=== PATIENT | female | born 1985 | race Caucasian/White ===

== ENCOUNTER 2018-04-22 18:50 | Emergency (ER) | payer BC ==
--- NOTE | 2018-04-22 19:32 | EDM.PDOC ---
ED HPI GENERAL MEDICAL PROBLEM - General Chief Complaint: Lower Extremity Injury/Pain Stated Complaint: RIGHT KNEE HAS A RED SPOT Time Seen by Provider: 04/22/18 19:16 Source of Information: Reports: Patient History Limitations: Reports: No Limitations - History of Present Illness INITIAL COMMENTS - FREE TEXT/NARRATIVE: The patient states that she has had painless right knee swelling for the past 6 months, that gets worse with prolonged standing. She states that she wears a knee brace. This morning she noticed a very slight patch of painless erythema to the medial aspect of her right knee. No known injury, although it is in the area where she wears a knee brace. No prior similar symptoms. The patient states that she and her family recently moved from [place], and that she does not have a PCP. - Related Data Allergies Allergy/AdvReac Type Severity Reaction Status Date / Time No Known Allergies Allergy Verified 04/22/18 19:12 Home Meds: Home Meds . [No Known Home Meds] 04/22/18 [History] Past Medical History - Past Health History Medical/Surgical History: Denies Medical/Surgical History Social & Family History - Tobacco Use Smoking Status *Q: Never Smoker - Caffeine Use Caffeine Use: Reports: Coffee, Soda - Alcohol Use Alcohol Use History: No - Recreational Drug Use Recreational Drug Use: No - Living Situation & Occupation Living situation: Reports: , with Spouse, with Family (6 kids) Occupation: Unemployed Review of Systems - Review of Systems Review Of Systems: ROS reveals no pertinent complaints other than HPI. ED EXAM, GENERAL - Physical Exam Exam: See Below Exam Limited By: No Limitations General Appearance: Alert, WD/WN, No Apparent Distress Extremities: Other (There is the very slightest area of erythema, barely visible , measuring no more than 1 cm by 0.5 cm, to the medial aspect of the patient's right knee. It is not raised on palpation, and easily blanches. Neurovascular status of the right lower extremity is intact.) Course - Vital Signs Last Recorded V/S: Last Vital Signs Temp 37.3 C 04/22/18 19:15 Pulse 99 04/22/18 19:15 Resp 20 04/22/18 19:15 BP 109/78 04/22/18 19:15 Pulse Ox 100 04/22/18 19:15 - Re-Assessments/Exams Free Text/Narrative Re-Assessment/Exam: 04/22/18 19:28 The patient has a very tiny red willie to the medial aspect of her right knee. There is no associated inflammation, and the marked is not raised. The patient states that she wears a knee brace, and this is likely due to perspiring under the neoprene, for a period of time. There is no suggestion of an infection. I'm recommending that the patient simply leave it alone. I will refer the patient to Dr. Rosana Allen is a PCP. The patient's daughter was given a bicycle helmet. Departure - Departure Time of Disposition: 19:28 Disposition: Home, Self-Care 01 Condition: Good Clinical Impression: Erythema - Discharge Information *PRESCRIPTION DRUG MONITORING PROGRAM REVIEWED*: No *COPY OF PRESCRIPTION DRUG MONITORING REPORT IN PATIENT SALVADOR: No Referrals: PCP,None [Primary Care Provider] - Erica Allen MD [Physician] - Forms: ED Department Discharge Additional Instructions: You were seen in the emergency room for a small red willie on the middle side of your right knee. On examination, this willie was likely made from your knee brace. There is no suggestion of an infection or blood clot. Follow-up with Dr. Erica Allen as a primary care physician, as needed. If any other problems, please do not hesitate to return to the ER.
== END 2018-04-22 19:40 | disposition home or self-care (01) ==
LOC: JD.ED 18:50
DX: L53.9 Erythematous condition, unspecified (principal)
CPT/HCPCS: 99282; 99283

== ENCOUNTER 2019-10-10 10:59 | Emergency (ER) | payer BC ==
--- NOTE | 2019-10-10 11:41 | EDM.PDOC ---
ED HPI GENERAL MEDICAL PROBLEM - General Chief Complaint: Fever Stated Complaint: FEVER Time Seen by Provider: 10/10/19 11:35 Source of Information: Reports: Patient History Limitations: Reports: No Limitations - History of Present Illness INITIAL COMMENTS - FREE TEXT/NARRATIVE: 34-year-old female presents the ED complaining of fever and chills since mid Monday p.m. This would be October 07. She never developed a severe headache. She does have a paroxysmal nonproductive cough. Denies any genitourinary complaints no diarrhea or vomiting occurred. Any sputum. Throat or ears. 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 No members of her family are currently ill. She reports one of her daughters had some diarrhea and vomiting for a day and a half last week. She did not have a flu shot. Appetite remains fair. Onset: Sudden Onset Date: 10/07/19 (Onset of fever and chills Monday afternoon.) Duration: Day(s):, Constant Location: Reports: Generalized (Treatment intermittent fever and chills improves with Tylenol.) Quality: Reports: Other (Again body aches.) Severity: Moderate Improves with: Reports: Medication Worsens with: Reports: None (Tylenol brings down the fever.) Context: Reports: Other (Spontaneous occurrence.). Denies: Activity, Exercise, Lifting, Sick Contact, Trauma Associated Symptoms: Reports: Cough, Diaphoresis, Fever/Chills. 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 - Related Data Allergies Allergy/AdvReac Type Severity Reaction Status Date / Time No Known Allergies Allergy Verified 10/10/19 14:25 Home Meds: Home Meds Azithromycin [Zithromax] 250 mg PO DAILY #6 tab 10/10/19 [Rx] busPIRone [Buspar] 5 mg PO ASDIRECTED 10/10/19 [History] Past Medical History - Past Health History Medical/Surgical History: Denies Medical/Surgical History : 2 Para: 2 Psychiatric History: Reports: Anxiety Social & Family History - Tobacco Use Smoking Status *Q: Never Smoker - Caffeine Use Caffeine Use: Reports: Coffee - Recreational Drug Use Recreational Drug Use: No - Living Situation & Occupation Living situation: Reports: , with Spouse, with Family (6 kids) 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 Denies: Decreased Appetite, Weight Loss HEENT: Reports: No Symptoms Respiratory: Reports: Cough. Denies: Shortness of Breath, Wheezing, Pleuritic Chest Pain Cardiovascular: Reports: No Symptoms. Denies: Chest Pain, Blood Pressure Problem, Claudication, Dyspnea on Exertion, Edema, Lightheadedness, Orthopnea Endocrine: Reports: No Symptoms GI/Abdominal: Reports: No Symptoms : Reports: Frequency. Denies: Dysuria Musculoskeletal: Reports: No Symptoms Skin: Reports: No Symptoms Neurological: Reports: No Symptoms Psychiatric: Reports: No Symptoms Hematologic/Lymphatic: Reports: No Symptoms Immunologic: Reports: No Symptoms ED EXAM, GENERAL - Physical Exam Exam: See Below Exam Limited By: No Limitations General Appearance: Alert, WD/WN, No Apparent Distress, Other (Temperature is 37.5 although she did not feel that warm to palpation. Heart rate at the bedside was 117. BP 112/84 sats 100% on room air. Respiratory rate not recorded clinically she was about 18/m.) Eye Exam: Bilateral Eye: Normal Inspection Ears: Other (Unable to visualize the left tympanic membrane is is occluded with cerumen.) Throat/Mouth: Normal Inspection, Normal Lips, Normal Oropharynx Head: Atraumatic, Normocephalic Neck: Normal Inspection, Supple, Non-Tender, Full Range of Motion. No: Carotid Bruit, Lymphadenopathy (L), Lymphadenopathy (R), Thyromegaly Respiratory/Chest: No Respiratory Distress, Lungs Clear, Normal Breath Sounds, No Accessory Muscle Use Cardiovascular: Normal Peripheral Pulses, Regular Rate, Rhythm, No Edema, No Gallop, No Murmur, No Rub Peripheral Pulses: 4+: Posterior Tibial (L), Posterior Tibial (R), Dorsalis Pedis (L), Dorsalis Pedis (R) GI/Abdominal: Normal Bowel Sounds, Soft, Non-Tender, No Organomegaly, No Abnormal Bruit, No Mass, Pelvis Stable Back Exam: Normal Inspection, Full Range of Motion. No: CVA Tenderness (L), CVA Tenderness (R) Extremities: Normal Inspection, Normal Range of Motion, Non-Tender, No Pedal Edema Neurological: Alert, Oriented, CN II-XII Intact, Normal Cognition Psychiatric: Normal Affect, Normal Mood Skin Exam: Warm, Dry, Intact, Normal Color, No Rash Course - Vital Signs Last Recorded V/S: Last Vital Signs Temp 37.5 C 10/10/19 11:21 Pulse 117 H 10/10/19 11:21 Resp BP 112/84 10/10/19 11:21 Pulse Ox 100 10/10/19 11:21 - Orders/Labs/Meds Labs: Laboratory Tests 10/10/19 10/10/19 10/10/19 Range/Units 11:51 12:01 12:01 WBC 10.38 H (3.98-10.04) K/mm3 RBC 4.15 (3.98-5.22) M/mm3 Hgb 12.6 (11.2-15.7) gm/dl Hct 37.6 (34.1-44.9) % MCV 90.6 (79.4-94.8) fl MCH 30.4 (25.6-32.2) pg MCHC 33.5 (32.2-35.5) g/dl RDW Std Deviation 38.0 (36.4-46.3) fL Plt Count 301 (182-369) K/mm3 MPV 9.9 (9.4-12.3) fl Neut % (Auto) 75.3 H (34.0-71.1) % Lymph % (Auto) 15.3 L (19.3-51.7) % [place] % (Auto) 7.7 (4.7-12.5) % Eos % (Auto) 1.2 (0.7-5.8) Baso % (Auto) 0.2 (0.1-1.2) % Neut # (Auto) 7.82 H (1.56-6.13) K/mm3 Lymph # (Auto) 1.59 (1.18-3.74) K/mm3 [place] # (Auto) 0.80 H (0.24-0.36) K/mm3 Eos # (Auto) 0.12 (0.04-0.36) K/mm3 Baso # (Auto) 0.02 (0.01-0.08) K/mm3 Sodium 136 (136-145) mEq/L Potassium 3.6 (3.5-5.1) mEq/L Chloride 99 (98-107) mEq/L Carbon Dioxide 25 (21-32) mEq/L Anion Gap 15.6 H (5-15) BUN 9 (7-18) mg/dL Creatinine 0.6 (0.55-1.02) mg/dL Est Cr Clr Drug Dosing 106.46 mL/min Estimated GFR (MDRD) > 60 (>60) mL/min BUN/Creatinine Ratio 15.0 (14-18) Glucose 104 (74-106) mg/dL Calcium 9.1 (8.5-10.1) mg/dL Total Bilirubin 0.6 (0.2-1.0) mg/dL AST 42 H (15-37) U/L ALT 101 H (14-59) U/L Alkaline Phosphatase 96 (46-116) U/L C-Reactive Protein 9.0 H* (<1.0) mg/dL Total Protein 7.8 (6.4-8.2) g/dl Albumin 3.6 (3.4-5.0) g/dl Globulin 4.2 gm/dL Albumin/Globulin Ratio 0.9 L (1-2) Urine Color Yellow (Yellow) Urine Appearance Clear (Clear) Urine pH 7.5 (5.0-8.0) Ur Specific [place] 1.020 (1.005-1.030) Urine Protein Negative (Negative) Urine Glucose (UA) Negative (Negative) Urine Ketones Negative (Negative) Urine Occult Blood Negative (Negative) Urine Nitrite Negative (Negative) Urine Bilirubin Negative (Negative) Urine Urobilinogen 0.2 (0.2-1.0) Ur Leukocyte Esterase Negative (Negative) Urine RBC 0-5 (0-5) /hpf Urine WBC 0-5 (0-5) /hpf Ur Squamous Epith Cells 0-5 (0-5) /hpf Urine Bacteria Few (FEW) /hpf Urine Mucus Few (FEW) /hpf Meds: Medications Discontinued Medications Generic Name Dose Route Start Last Admin Trade Name Freq PRN Reason Stop Dose Admin Azithromycin 500 mg 10/10/19 13:42 10/10/19 14:03 Zithromax PO 10/10/19 13:43 500 mg ONETIME ONE Administration - Radiology Interpretation Free Text/Narrative:: 34-year-old female presents to the ED with chief complaint of fever and chills that have been ongoing since October 07 p.m. She did not develop a bad headache. Has a minimal nonproductive cough more like a tickle in her throat. No urinary tract symptoms she never developed any nausea vomiting or diarrhea. She has broken out in a sweat in the nighttime due to the severity of the fever. 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 Examination yields no obvious signs of an infection. Plan influenza screen. Routine labs and CRP and a urinalysis. I will hold off on a chest x-ray for now as it is clear to auscultation percussion. If the influenza comes back negative then she will have a chest x-ray performed. - Re-Assessments/Exams Free Text/Narrative Re-Assessment/Exam: 10/10/19 13:21 White count is 10.38. 75% neutrophils. Hemoglobin is 12.6 with hematocrit 37.6. Platelet count 301,000. Sodium 136 with a potassium of 3.6. Chloride is 99 with a bicarbonate 25. Anion gap is 15.6. BUN is 9 with a creatinine of 0.6. GFR is greater than 60. Glucose is 104. Calcium is 9.1 total bilirubin is 0.6 AST is 42 with an ALT of 101. Prostate is 96. C-reactive protein is elevated at 9.0. Total protein is 7.8 with an albumin fraction of 3.6. Urinalysis is completely normal. Influenza screen is also negative. Patient will therefore be 4 chest x-ray 10/10/19 13:45 view chest x-ray reveals a right upper lobar infiltrate compatible with pneumonia. As appears to be the cause cause of her fever and chills. She be placed on Zithromax. Initial 500 mg will be given in the ED. She will then be placed on 250 mg of Zithromax daily for another 6 days to clear up infection. She will continue either Tylenol and/or Motrin/Advil as needed for fever and chills. She should this expect improvement over the next 48-72 hours. Departure - Departure Time of Disposition: 13:46 Disposition: Home, Self-Care 01 Condition: Fair Clinical Impression: Pneumonia Qualifiers: Pneumonia type: due to unspecified organism Laterality: right Lung location: upper lobe of lung Qualified Code(s): J18.9 - Pneumonia, unspecified organism - Discharge Information *PRESCRIPTION DRUG MONITORING PROGRAM REVIEWED*: Not Applicable *COPY OF PRESCRIPTION DRUG MONITORING REPORT IN PATIENT SALVADOR: Not Applicable Prescriptions: Azithromycin [Zithromax] 250 mg PO DAILY #6 tab Instructions: Community-Acquired Pneumonia, Adult Referrals: PCP,None [Primary Care Provider] - Forms: ED Department Discharge Additional Instructions: Evaluation the emergency room today in regards to intermittent fever and chills for the last 4 days. Mild nonproductive cough i.e. more like a tickle in the throat. Examination did not yield any obvious sources of infection. Lab tests revealed a mildly elevated white blood cell count and a CRP which is a measuring stick for bacterial infection was elevated at 9.0 with normal being 1. Urinalysis was normal. Therefore two-view chest x-ray was carried out to look for pneumonia and in fact there is a patch of pneumonia developing in the right upper lobe of the lung. Treatment is therefore Zithromax initial dose 500 mg given in the ED. He will then need one tablet 250 mg daily at dinnertime every day for the next 6 days to clear up pneumonia completely. And if not completely back to normal in 7 days time Sepsis Event Note - Evaluation Sepsis Screening Result: No Definite Risk - Focused Exam Vital Signs: Vital Signs Temp Pulse BP Pulse Ox 10/10/19 11:21 37.5 C 117 H 112/84 100 Date Exam was Performed: 10/10/19 Time Exam was Performed: 19:05
[2019-10-10] MEDS ORDERED: Azithromycin 250 MG Tab PO ONE (13:42)
--- NOTE | 2019-10-10 14:06 | CR ---
Chest: Two views of the chest were obtained. Comparison: No prior chest x-ray. Parenchymal density is noted within the right upper chest. Lungs otherwise are clear. Heart size and mediastinum are normal. Bony structures appear within normal limits for the patient's age. Impression: 1. Right femoral density within the right upper chest most likely representing pneumonia. 2. No additional abnormality is seen. Diagnostic code #3 This report was dictated in [place] Standard Time
== END 2019-10-10 14:08 | disposition home or self-care (01) ==
LOC: JD.ED 10:59
DX: J18.9 Pneumonia, unspecified organism (principal)
CPT/HCPCS: 36415; 71046; 80053; 81001; 85025; 86140; 87804; 99283; A9270

== ENCOUNTER 2024-11-24 14:45 | Emergency (ER) | payer BC ==
[2024-11-24 17:21] LABS: BASOPHILS ABSOLUTE AUTO 0.1 K/mm3 (0.0-0.2); BASOPHILS PERCENT AUTO 0.5 % (0.0-1.0); EOSINOPHILS PERCENT AUTO 0.3 % (0.0-6.0); HEMATOCRIT 41.7 % (37.0-47.0); HEMOGLOBIN 14.2 gm/dl (12.0-16.0); IMMATURE GRAN ABSOLUTE AUTO 0.05 K/mm3 (0.00-0.05); IMMATURE GRAN PERCENT AUTO 0.3 % (0.0-0.4); LYMPHOCYTES ABSOLUTE AUTO 1.9 K/mm3 (1.0-4.8); MEAN CORPUSCULAR HEMOGLOBIN 31.7 pg (28.0-32.0); MEAN CORPUSCULAR HGB CONC 34.1 g/dl (32.0-36.0); MEAN CORPUSCULAR VOLUME 93.1 fl (83.0-99.0); MEAN PLATELET VOLUME 9.3 fl (9.4-12.3); MONOCYTES PERCENT AUTO 6.9 % (0.0-8.0); NEUTROPHILS ABSOLUTE AUTO 11.7 K/mm3 (1.8-7.7); PLATELET COUNT,PLT 306 K/mm3 (150-400); RED BLOOD CELL COUNT 4.48 M/mm3 (4.10-5.30); WHITE BLOOD CELL COUNT,WBC 14.85 K/mm3 (3.9-11.3)
[2024-11-24 17:30] LABS: BILIRUBIN,URINE NEGATIVE (Negative); COLOR,URINE YELLOW (Yellow); GLUCOSE,URINE NEGATIVE (Negative); KETONES,URINE NEGATIVE (Negative); LEUKOCYTE ESTERASE,URINE NEGATIVE (Negative); NITRITE,URINE NEGATIVE (Negative); OCCULT BLOOD,URINE 3+ (Negative); PH,URINE 7.5 (5.0-8.0); PROTEIN,URINE 1+ (Negative); UROBILINOGEN,URINE 0.2 (0.2-1.0)
[2024-11-24 18:00] LABS: ALANINE AMINOTRANSFERASE,ALT 33 U/L (14-59); ALBUMIN 3.7 g/dl (3.4-5.0); ALKALINE PHOSPHATASE 65 U/L (46-116); ANION GAP 12.9 (5-15); ASPARTATE AMNIOTRANSFERASE,AST 18 U/L (15-37); BILIRUBIN TOTAL 0.5 mg/dL (0.2-1.0); BLOOD UREA NITROGEN,BUN 16 mg/dL (7-18); CALCIUM 9.3 mg/dL (8.5-10.1); CARBON DIOXIDE,CO2 27 mEq/L (21-32); CHLORIDE,CL 105 mEq/L (98-107); CREATININE 0.8 mg/dL (0.55-1.02); EST CRCL DRUG DOSING (CG) 76.15 mL/min; ESTIMATED GFR 97 mL/min (>60); GLUCOSE RANDOM 110 mg/dL (70-99); POTASSIUM,K 3.9 mEq/L (3.5-5.1); PROTEIN TOTAL,TP 7.3 g/dl (6.4-8.2); SODIUM,NA 141 mEq/L (136-145)
[2024-11-24 18:06] LABS: HCG QUANTITATIVE < 1.0 mIU/mL
[2024-11-24 18:18] LABS: APPEARANCE,URINE SLT CLOUDY (Clear); RBC,URINE 20-30 /hpf (0-5); WBC,URINE 0-5 /hpf (0-5)
[2024-11-24 18:19] LABS: BACTERIA,URINE MODERATE /hpf (FEW); MUCUS,URINE FEW /hpf (FEW)
[2024-11-24 19:35] LABS: C. TRACHOMATIS BY PCR NOT DETECTED; N. GONORRHOEAE BY PCR NOT DETECTED
[2024-11-24] MEDS ORDERED: metroNIDAZOLE 500 MG Tab PO ONE (20:31)
== END 2024-11-24 20:52 | disposition home or self-care (01) ==
LOC: JD.ED 14:45
DX: N76.0 Acute vaginitis (principal); N93.8 Other specified abnormal uterine and vaginal bleeding; Z79.899 Other long term (current) drug therapy
CPT/HCPCS: 36415; 76830; 76830-26; 80053; 81001; 81515; 84702; 85025; 87491; 87591; 99284